=== PATIENT | male | born 1955 | race Hispanic/Latino ===

== ENCOUNTER 2023-08-19 09:38 | Day surgery (SDC) | payer OTHER ==
[2023-08-15 15:16] VITALS: BMI 30.2
[2023-08-19] MEDS ORDERED: PROPOFOL 40 ML ONE (11:13)
== END 2023-08-19 12:33 | disposition home or self-care (01) ==
LOC: CSHSDC 09:38
PROVIDERS: ATTEND Internal Medicine Gastroenterology
PROC: 0DBL8ZZ Excision of Transverse Colon, Via Natural or Artificial Opening Endoscopic (ICD-10-PCS; principal; 2023-08-19)
DX: D12.3 Benign neoplasm of transverse colon (principal); K64.8 Other hemorrhoids; I12.0 Hypertensive chronic kidney disease with stage 5 chronic kidney disease or end stage renal disease; E11.22 Type 2 diabetes mellitus with diabetic chronic kidney disease; N18.6 End stage renal disease; D50.9 Iron deficiency anemia, unspecified; Z99.2 Dependence on renal dialysis; Z90.49 Acquired absence of other specified parts of digestive tract; Z87.891 Personal history of nicotine dependence
CPT/HCPCS: 88305; J2704